=== PATIENT | female | born 1950 | race Caucasian/White ===

== ENCOUNTER 2019-02-17 14:17 | Outpatient (CLI) | payer MEDICARE, OTHER ==
--- NOTE | 2019-02-17 17:00 | XRAY Report ---
Reason: PAIN IN RT FOOT Procedure Date: 02/17/2019 Accession Number: [id number] / [id number] Procedure: XR - Foot 3 View RT CPT Code: FULL RESULT: EXAM: RIGHT FOOT RADIOGRAPHY EXAM DATE: 02/17/2019 02:36 PM. CLINICAL HISTORY: Right foot pain after dropping heavy object on it 1.5 months ago. COMPARISON: None. TECHNIQUE: 3 views. FINDINGS: Bones: Normal. No fractures or bone lesions. Joints: Normal. No subluxations. Soft Tissues: Normal. No soft tissue swelling. IMPRESSION: Normal foot radiography. [facility]
== END 2019-02-17 14:18 | disposition home or self-care (01) ==
LOC: DI 14:17
PROVIDERS: ATTEND Nurse Practitioner Family
DX: M79.671 Pain in right foot (principal)

== ENCOUNTER 2021-08-09 16:44 | Outpatient (CLI) | payer MEDICARE ==
--- NOTE | 2021-08-10 10:40 | XRAY Report ---
PROCEDURE: Elbow 3 View BILAT INDICATIONS: Status post fall. TECHNIQUE: 3 views of the right elbow and left elbow were acquired. COMPARISON: None FINDINGS: Bones: No fractures or dislocations. No suspicious bony lesions. Mild osteophytic degenerative major ges noted in the elbow joints bilaterally. Soft tissues: No elbow joint effusion. No suspicious soft tissue calcifications. IMPRESSION: No fracture. No acute osseous lesion. If there persistent symptoms or continued clinical concern for pathology, then repeat plain film radiographs (7-10 days) or advanced imaging (CT, MR, bone scan) joseline uld be considered for further evaluation. Mild bilateral elbow joint osteoarthritis. Reviewed by: Kenya Brown MD, PhD on 08/10/2021 10:39 AM PDT Approved by: Kenya Brown MD, PhD on 08/10/2021 10:39 AM PDT Station ID: [id number]
== END 2021-08-09 16:45 | disposition home or self-care (01) ==
LOC: DI.S 16:44
PROVIDERS: ATTEND Physician Assistant
DX: M19.021 Primary osteoarthritis, right elbow (principal); M19.022 Primary osteoarthritis, left elbow

== ENCOUNTER 2022-04-18 07:26 | Outpatient (CLI) | payer MEDICARE ==
--- NOTE | 2022-04-18 17:35 | XRAY Report ---
PROCEDURE: Chest 2 View X-Ray INDICATIONS: COUGH TECHNIQUE: 2 views of the chest were acquired. COMPARISON: None FINDINGS: Surgical changes and devices: Surgical clips are noted in right axilla. Lungs and pleura: No pleural effusions or pneumothorax. Lungs are clear. Mediastinum: Mediastinal contours are normal. Heart size is normal. Bones and chest wall: No suspicious bony abnormalities. Soft tissues appear unremarkable. IMPRESSION: No acute cardiopulmonary pathology. Reviewed by: Jvuenal Brandt MD on 04/18/2022 5:34 PM [facility] Approved by: Juvenal Brandt MD on 04/18/2022 5:34 PM [facility] Station ID: [id number]
== END 2022-04-18 07:27 | disposition home or self-care (01) ==
LOC: DI 07:26
PROVIDERS: ATTEND Physician Assistant
DX: R05.9 Cough, unspecified (principal)